=== PATIENT | male | born 1960 | race African-American/Black ===

== ENCOUNTER 2022-03-03 09:45 | Day surgery (SDC) | payer OTHER ==
[2022-03-02 10:31] VITALS: BMI 24.8
[2022-03-03] MEDS ORDERED: Bupivacaine PF 0.5% 30 ML VIAL ONE (11:23)
[2022-03-03] MEDS ORDERED: Neomycin-Polymyxin 1 ML AMP ONE (11:24)
[2022-03-03] MEDS ORDERED: CEFAZOLIN 2 GM VIAL ONE (11:59)
[2022-03-03] MEDS ORDERED: Midazolam HCl 2 mg/2 ml Vial ONE (12:08)
[2022-03-03] MEDS ORDERED: PROPOFOL 20 ML ONE ×2 (12:08→12:38)
[2022-03-03] MEDS ORDERED: Fentanyl 100 MCG/2 ML VIAL ONE (12:08)
[2022-03-03] MEDS ORDERED: Lidocaine 1% PF 5 ML VIAL ONE (12:12)
[2022-03-03] MEDS ORDERED: Dexamethasone 4 mg/ml Vial ONE (13:46)
[2022-03-03] MEDS ORDERED: Ondansetron PF 4 MG/2 ML Vial ONE (13:46)
== END 2022-03-03 14:56 | disposition home or self-care (01) ==
LOC: CSHSDC 09:45
PROVIDERS: ATTEND Podiatrist Foot & Ankle Surgery
PROC: 0SGM0JZ Fusion of Right Metatarsal-Phalangeal Joint with Synthetic Substitute, Open Approach (ICD-10-PCS; principal; 2022-03-03)
PROC: 0SGP0JZ Fusion of Right Toe Phalangeal Joint with Synthetic Substitute, Open Approach (ICD-10-PCS; principal; 2022-03-03)
DX: M20.41 Other hammer toe(s) (acquired), right foot (principal); M20.11 Hallux valgus (acquired), right foot; M77.41 Metatarsalgia, right foot; M21.611 Bunion of right foot
CPT/HCPCS: C1713; J1100; J2250; J2405; J2704; J3010; S0020